=== PATIENT | female | born 1980 | race Hispanic/Latino ===

== ENCOUNTER 2022-05-20 19:17 | Emergency (ER) | payer OTHER ==
[~2022-05-20] VITALS: Ht 160 cm; Wt 82.1 kg
[2022-05-20] MEDS ORDERED: ORPHENADRINE CITRATE 30 MG/ML ML IM ONE (20:30)
[2022-05-20] MEDS ORDERED: KETOROLAC 60 MG VIAL (30MG/ML) IM ONE (20:30)
[2022-05-20 20:35] LABS: APPEARANCE,URINE CLEAR (CLEAR); BILIRUBIN,URINE NEGATIVE (NEGATIVE); COLOR,URINE COLORLESS (YELLOW); GLUCOSE, URINE (UA) NEGATIVE (NEGATIVE); KETONES,URINE NEGATIVE (NEGATIVE); LEUKOCYTE ESTERASE ,URINE 75 Leu/uL (NEGATIVE); NITRATE,URINE NEGATIVE (NEGATIVE); OCCULT BLOOD,URINE SMALL (NEGATIVE); PROTEIN,URINE NEGATIVE (NEGATIVE); UROBILINOGEN,URINE 0.2 mg/dL (0.2-1.0)
[2022-05-20 20:36] LABS: HCG,QUALITATIVE URINE NEGATIVE (NEGATIVE)
[2022-05-20 20:41] LABS: BACTERIA,URINE RARE /HPF (None Seen); MUCUS,URINE RARE LPF (None Seen); SQUAMOUS EPITHELIAL CELL,UR RARE /HPF (0-2)
[2022-05-20] MEDS ORDERED: IBUP-2077 PO (20:52)
[2022-05-20] MEDS ORDERED: TRAM50TA4 PO (20:52)
[2022-05-20] MEDS ORDERED: CYCL10TA16 PO (20:52)
[2022-05-20] MEDS ORDERED: SULFAMETHOX-TMP DS 800/160 TAB PO SCH (21:00)
[2022-05-20 21:51] VITALS: BP 125/73
== END 2022-05-20 21:55 | disposition home or self-care (01) ==
LOC: EDH 19:17
DX: N39.0 Urinary tract infection, site not specified (principal); M54.41 Lumbago with sciatica, right side
CPT/HCPCS: 99284; 87088; 81001; 81025; 96372 ×2; J1885; J2360